=== PATIENT | female | born 1965 | race Asian ===

== ENCOUNTER 2019-01-13 17:50 | Emergency (ER) | payer SELFPAY ==
[~2019-01-13] VITALS: Ht 165.1 cm; Wt 95.3 kg
--- NOTE | 2019-01-13 18:24 | ED General ---
General Chief Complaint: Cardiac/General Problems Stated Complaint: HIGH BP Nursing Triage Note: PT REPORTS GOING ON WALK AND COMING HOME AND SYSTOLIC BLOOD PRESSURE WAS 170. AFTER A LITTLE WHILE, SYSTOLIC BLOOD PRESSURE ONLY CAME DOWN TO 140'S. PT AND FAMILY ARE WORRIED THAT ITS TILL TOO HIGH SINCE SHE IS DIABETIC. Nursing Sepsis Screen: No Definite Risk Source of Information: Patient, Family (son) Exam Limitations: No Limitations History of Present Illness Date Seen by Provider: Jan 13, 2019 Time Seen by Provider: 18:11 Initial Comments Patient presents to ER by private conveyance with chief complaint of having ran out of her metformin 2 days ago. Her blood sugar this morning was 179. She's not been eating and is come down to 149. She does not use insulin. She is visiting her son from another country and plans to be here for another month. She does not have a primary care practice here. She takes 1500 mg daily and tolerates this for over a year. She has no fevers nausea vomiting diarrhea or abdominal pain. Allergies and Home Medications Allergies Coded Allergies: No Known Drug Allergies (Unverified , 01/13/19) Patient Home Medication List Home Medication List Reviewed: Yes Review of Systems Review of Systems Constitutional: No chills, No fever EENTM: No ear discharge, No ear pain Respiratory: No cough, No short of breath Cardiovascular: No chest pain, No edema Past Rothcur-Bjoxqs-Evzmhx Hx Patient Social History Alcohol Use: Denies Use Recreational Drug Use: No Smoking Status: Never a Smoker Recent Foreign Travel: No Contact w/Someone Who Travel: No Recent Infectious Disease Expo: No Recent Hopitalizations: No Seasonal Allergies Seasonal Allergies: No Past Medical History Surgeries: Yes Hysterectomy, Tonsillectomy Respiratory: No Cardiac: No Neurological: No Genitourinary: No Gastrointestinal: No Musculoskeletal: No Endocrine: Yes Diabetes, Insulin dep HEENT: No Cancer: No Psychosocial: No Integumentary: Yes Eczema Blood Disorders: No Physical Exam Vital Signs Vital Signs - First Documented 01/13/19 17:57 Temp 97.8 Pulse 65 Resp 16 B/P (MAP) 134/79 (97) Pulse Ox 98 Capillary Refill : Less Than 3 Seconds Height, Weight, BMI Height: 5'5.00" Weight: 210lbs. oz. [id number]; BMI Method:Stated General Appearance: No Apparent Distress Eyes: Bilateral Eye Normal Inspection, Bilateral Eye PERRL, Bilateral Eye EOMI HEENT: Pharynx Normal, Moist Mucous Membranes Neck: Full Range of Motion, Normal Inspection Respiratory: Normal Breath Sounds, No Accessory Muscle Use, No Respiratory Distress Progress/Results/Core Measures Suspected Sepsis Recent Fever Within 48 Hours: No Infection Criteria Present: None New/Unexplained Altered Menta: No Sepsis Screen: No Definite Risk SIRS Temperature:97.8 Pulse: 65 Respiratory Rate: 16 Blood Pressure 134 /79 Mean: 97 Results/Orders Vital Signs/I&O 01/13/19 17:57 Temp 97.8 Pulse 65 Resp 16 B/P (MAP) 134/79 (97) Pulse Ox 98 Capillary Refill : Less Than 3 Seconds Blood Pressure Mean: 97 Progress Note : Time: 18:22 Progress Note We'll provide her with a month of 500 mg 3 times a day metformin way she is used to taking it. Departure Impression Primary Impression: Diabetes type 2, controlled Qualified Codes: E11.8 - Type 2 diabetes mellitus with unspecified complications Disposition: HOME, SELF-CARE Condition: Stable Departure-Patient Inst. Decision time for Depature: 18:24 Referrals: NO,LOCAL PHYSICIAN (PCP/Family) Primary Care Physician Patient Instructions: Type 2 Diabetes Add. Discharge Instructions: Go to [facility] and mixing picker tender your metformin and take it 3 times a day as your used to taking it. All discharge instructions reviewed with patient and/or family. Voiced understanding. Scripts Metformin HCl (Metformin HCl) 500 Mg Tablet 500 MG PO TID for 30 Days, #90 TAB 0 Refills Prov: BENNETT GARCÍA 01/13/19 BENNETT GARCÍA Jan 13, 2019 18:24
[2019-01-13] MEDS ORDERED: METF-397 PO (18:25)
[2019-01-13 18:31] VITALS: BP 134/79
== END 2019-01-13 18:31 | disposition home or self-care (01) ==
LOC: ER 17:54
DX: E11.9 Type 2 diabetes mellitus without complications (principal); Z90.710 Acquired absence of both cervix and uterus; Z90.89 Acquired absence of other organs; Z79.84 Long term (current) use of oral hypoglycemic drugs
CPT/HCPCS: 99281